=== PATIENT | male | born 1960 | race African-American/Black ===

== ENCOUNTER 2016-06-23 12:00 | Emergency (ER) | payer SELFPAY ==
[2016-06-23 12:05] VITALS: BP 154/82
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
== END 2016-06-23 14:48 | disposition home or self-care (01) ==
LOC: ER 12:00
DX: G89.29 Other chronic pain (principal); M54.5 Low back pain; M25.522 Pain in left elbow; H53.8 Other visual disturbances; W20.8XXS Other cause of strike by thrown, projected or falling object, sequela; R03.0 Elevated blood-pressure reading, without diagnosis of hypertension; F17.210 Nicotine dependence, cigarettes, uncomplicated
CPT/HCPCS: 99283

== ENCOUNTER → 2016-07-20 | Outpatient (CLI) | payer MEDICAID | LOC: OD 14:36 | PROVIDERS: ATTEND Physician Assistant | DX: R73.9 Hyperglycemia, unspecified (principal) | CPT/HCPCS: 36415; 83036 ==

== ENCOUNTER → 2017-09-26 | Outpatient (CLI) | payer OTHER ==
[2017-09-29 09:10] LABS: ABSOLUTE EOSINOPHILS # (AUTO) 0.3 10^3/uL (0.0-0.6); ABSOLUTE MONOCYTES (AUTO) 0.6 10^3/uL (0.1-1.4); ABSOLUTE NEUT (AUTO) 5.2 10^3/uL (1.7-8.2); BASOPHILS % (AUTO) 0.2 % (0-2); EOSINOPHILS % (AUTO) 3.9 % (0-6); HEMATOCRIT 38.5 % (37.9-51.0); HEMOGLOBIN 13.1 g/dL (13.5-17.0); LYMPHOCYTES % (AUTO) 24.2 % (13-45); MEAN CORPUSCULAR HEMOGLOBIN 33.4 pg (27.0-33.4); MEAN CORPUSCULAR HGB CONC 33.9 g/dL (32.0-36.0); MEAN CORPUSCULAR VOLUME 99 fl (80-97); MONOCYTES % (AUTO) 7.9 % (3-13); PLATELET COUNT 263 10^3/uL (150-450); RED BLOOD COUNT 3.91 10^6/uL (4.35-5.55); SEGMENTED NEUTROPHILS % (AUTO) 63.8 % (42-78); TOTAL CELLS COUNTED % (AUTO) 100 %; WHITE BLOOD COUNT 8.2 10^3/uL (4.0-10.5)
[2017-09-29 09:24] LABS: BLOOD UREA NITROGEN 17 mg/dL (7-20); CALCIUM 9.3 mg/dL (8.4-10.2); GLUCOSE 104 mg/dL (75-110)
[2017-09-29 09:25] LABS: ALANINE AMINOTRANSFERASE 23 U/L (21-72); ALBUMIN 3.9 g/dL (3.5-5.0); ALKALINE PHOSPHATASE 72 U/L (38-126); ANION GAP 10 (5-19); ASPARTATE AMINO TRANSFERASE 23 U/L (17-59); BILIRUBIN,DIRECT 0.3 mg/dL (0.0-0.4); BILIRUBIN,TOTAL 0.4 mg/dL (0.2-1.3); CARBON DIOXIDE 26 mmol/L (22-30); CHLORIDE 107 mmol/L (98-107); POTASSIUM 4.1 mmol/L (3.6-5.0); TOTAL PROTEIN 6.5 g/dL (6.3-8.2); TRIGLYCERIDES 89 mg/dL (<150); URIC ACID 4.9 mg/dL (3.5-8.5)
[2017-09-29 09:35] LABS: DIRECT LDL 102 mg/dL (<100)
== END ==
LOC: CCC 11:00
DX: D64.9 Anemia, unspecified (principal)
CPT/HCPCS: 36415; 80053; 80061; 83036; 84550; 85025

== ENCOUNTER → 2017-10-12 | Outpatient (CLI) | payer OTHER | LOC: CCC 17:24 | DX: Z00.00 Encounter for general adult medical examination without abnormal findings (principal) | CPT/HCPCS: 36415; 82607; 83090; 83921 ==

== ENCOUNTER 2017-12-22 09:40 | Emergency (ER) | payer SELFPAY ==
[2017-12-22 09:49] VITALS: BP 137/95
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
[2017-12-22] MEDS ORDERED: ACETAMINOPHEN 650 MG SUPP.RECT PR ONE (10:18)
[2017-12-22] MEDS ORDERED: IBUPROFEN 600 MG TABLET PO ONE (10:21)
== END 2017-12-22 10:30 | disposition home or self-care (01) ==
LOC: ER 09:40
DX: S01.01XA Laceration without foreign body of scalp, initial encounter (principal); W25.XXXA Contact with sharp glass, initial encounter; Z87.891 Personal history of nicotine dependence
CPT/HCPCS: 99283

== ENCOUNTER 2018-01-16 10:15 | Emergency (ER) | payer SELFPAY ==
[2018-01-16 10:19] VITALS: BP 121/84
--- NOTE | 2018-01-16 10:31 | ER Document Report ---
HPI - HPI Pain Level: Denies Notes: Patient is a 57-year-old male who presents with chief complaint of request for staple removal. Patient has 4 yazmin in the right frontal portion of his head. The wound is well approximated and appears to be healing well. Past Medical History - General Information source: Patient - Social History Smoking Status: Never Smoker Family History: Reviewed & Not Pertinent - Medical History Medical History: - please not be trying to micromanage Renal/ Medical History: Denies: Hx Peritoneal Dialysis Traumatic Medical History: Reports: Hx Fractures Past Surgical History: Reports: Hx Orthopedic Surgery - Immunizations Hx Diphtheria, Pertussis, Tetanus Vaccination: Yes Vertical Provider Document - CONSTITUTIONAL Notes: PHYSICAL EXAMINATION: GENERAL: Well-appearing, well-nourished and in no acute distress. HEAD: Atraumatic, normocephalic. 4 yazmin noted to right frontal area, wound well approximated. EYES: Pupils equal round extraocular movements intact, conjunctiva are normal. ENT: Nares patent NECK: Normal range of motion LUNGS: No respiratory distress Musculoskeletal: Normal range of motion NEUROLOGICAL: Normal speech, normal gait. PSYCH: Normal mood, normal affect. SKIN: Warm, Dry, normal turgor, no rashes or lesions noted. - INFECTION CONTROL TRAVEL OUTSIDE OF THE [place] IN LAST 30 DAYS: No Course - Re-evaluation Re-evalutation: 01/16/18 10:28 Yazmin removed with no difficulty. Patient will be discharged home in stable condition. - Vital Signs Vital signs: Temp Pulse Resp BP Pulse Ox 98.5 F 65 14 121/84 97 01/16/18 10:18 01/16/18 10:18 01/16/18 10:18 01/16/18 10:18 01/16/18 10:18 Discharge - Discharge Clinical Impression: Removal of yazmin Condition: Stable Disposition: HOME, SELF-CARE Additional Instructions: Staple Removal Your yazmin have been removed. Please follow the care instructions the doctor/nurse practitioner has outlined for you. Unless instructed otherwise, you may get the wound wet and you do not need to continue bandaging it. You may begin to return to regular activities, but remember that it takes the inner tissues up to six weeks to fully heal. Therefore, do not subject the wound to significant forces or stress as it may re-open. See the doctor immediately if any signs of infection occur such as swelling, redness, drainage of pus, increasing tenderness, red streaks, tender lumps in the armpit or groin above the laceration, or fever. Unless you are instructed otherwise, you should not need to be seen again for any further evaluation of your wound. Referrals: [facility] [Primary Care Provider] - Follow up as needed
== END 2018-01-16 10:34 | disposition home or self-care (01) ==
LOC: ER 10:15
DX: S01.81XD Laceration without foreign body of other part of head, subsequent encounter (principal); X58.XXXD Exposure to other specified factors, subsequent encounter

== ENCOUNTER 2018-07-02 22:21 | Emergency (ER) | payer SELFPAY ==
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
[2018-07-03 01:39] LABS: HEMATOCRIT 37.9 % (37.9-51.0); MEAN CORPUSCULAR HEMOGLOBIN 34.3 pg (27.0-33.4); MEAN CORPUSCULAR HGB CONC 34.3 g/dL (32.0-36.0); MEAN CORPUSCULAR VOLUME 100 fl (80-97); PLATELET COUNT 262 10^3/uL (150-450); RED BLOOD COUNT 3.79 10^6/uL (4.35-5.55); RED CELL DISTRIBUTION WIDTH 13.2 % (11.5-14.0)
[2018-07-03 01:42] LABS: ANION GAP 6 (5-19); BLOOD UREA NITROGEN 17 mg/dL (7-20); CALCIUM 9.4 mg/dL (8.4-10.2); CARBON DIOXIDE 27 mmol/L (22-30); CHLORIDE 110 mmol/L (98-107); GLUCOSE 100 mg/dL (75-110); POTASSIUM 4.1 mmol/L (3.6-5.0); SODIUM 142.5 mmol/L (137-145)
[2018-07-03 02:12] VITALS: BP 141/92
--- NOTE | 2018-07-03 06:37 | EKG REPORT ---
SEVERITY:- ABNORMAL ECG - SINUS RHYTHM FIRST DEGREE AV BLOCK CONSIDER LEFT VENTRICULAR HYPERTROPHY : Confirmed by: Varinder Currie MD 03-Jul-2018 06:36:55
== END 2018-07-03 02:27 | disposition home or self-care (01) ==
LOC: ER 22:21
DX: F07.81 Postconcussional syndrome (principal); R00.2 Palpitations; H53.8 Other visual disturbances; R51 Headache
CPT/HCPCS: 36415; 80048; 85027; 93005; 93010; 99285

== ENCOUNTER 2018-09-04 11:24 | Emergency (ER) | payer SELFPAY ==
[2018-09-04] MEDS ORDERED: ACETAMINOPHEN 325 MG TABLET PO ONE (11:34)
[2018-09-04 11:40] VITALS: BP 133/90
--- NOTE | 2018-09-04 12:22 | RADIOLOGY REPORT (SQ) ---
EXAM DESCRIPTION: FOOT RIGHT COMPLETE COMPLETED DATE/TIME: 09/04/2018 12:01 pm REASON FOR STUDY: unable to bear weight COMPARISON: None. NUMBER OF VIEWS: Three views. TECHNIQUE: AP, lateral and oblique radiographic images acquired of the right foot. LIMITATIONS: None. FINDINGS: MINERALIZATION: Normal. BONES: Nondisplaced fracture distal third of the fifth metatarsal bone. JOINTS: Degenerative changes and marked hallux valgus deformity and associated bunion at the first m etatarsophalangeal joint. SOFT TISSUES: No soft tissue swelling. No foreign body. OTHER: No other significant finding. IMPRESSION: 1. Nondisplaced fracture of the distal fifth metatarsal bone. 2. Degenerative changes and marked hallux valgus deformity and associated bunion at the first metata rsophalangeal joint. TECHNICAL DOCUMENTATION: JOB ID: [id number] [employer]- All Rights Reserved Reading location - IP/workstation name: [email or web address]
--- NOTE | 2018-09-04 13:07 | ER Document Report ---
HPI - HPI Patient complains to provider of: Right foot pain Time Seen by Provider: 09/04/18 11:32 Pain Level: 5 Context: Patient is a 58-year-old male presents to the emergency department for an injury to his right foot. Patient states he had construction boots on when him and his partner while lifting a over 500 pound piece of equipment. States his partner dropped his and and the piece of equipment fell onto his right foot. Patient states he had to have multiple people come over to help lift the object off his right foot. Patient states he continues with pain which is why he presents to the emergency room. Patient states last tetanus immunization was 2 years ago. - MUSCULOSKELETAL Musculoskeletal: REPORTS: Extremity pain - R foot Past Medical History - General Information source: Patient - Social History Smoking Status: Current Every Day Smoker Chew tobacco use (# tins/day): No Frequency of alcohol use: None Drug Abuse: None Family History: Reviewed & Not Pertinent Patient has suicidal ideation: No Patient has homicidal ideation: No Renal/ Medical History: Denies: Hx Peritoneal Dialysis Traumatic Medical History: Reports: Hx Fractures Past Surgical History: Reports: Hx Orthopedic Surgery - Immunizations Hx Diphtheria, Pertussis, Tetanus Vaccination: Yes Vertical Provider Document - CONSTITUTIONAL Agree With Documented VS: Yes Notes: GENERAL: Alert, interacts well. No acute distress. HEAD: Normocephalic, atraumatic. EYES: Pupils equal, round, and reactive to light. Extraocular movements intact. ENT: Oral mucosa moist, tongue midline. NECK: Full range of motion. Supple. Trachea midline. LUNGS: Clear to auscultation bilaterally, no wheezes, rales, or rhonchi. No respiratory distress. HEART: Regular rate and rhythm. No murmur ABDOMEN: Soft, non-tender. Non-distended. Bowel sounds present in all 4 quadrants. EXTREMITIES: Moves all 4 extremities spontaneously. normal radial and dorsalis pedis pulses bilaterally. Edema noted dorsal aspect of right foot. Capillary refill less than 2 seconds distally all 5 extremities right lower extremity. No pain upon palpation or movement right ankle. BACK: no cervical, thoracic, lumbar midline tenderness. No saddle anesthesia, normal distal neurovascular exam. NEUROLOGICAL: Alert and oriented x3. Normal speech. cranial nerves II through XII grossly intact PSYCH: Normal affect, normal mood. SKIN: Warm, dry, normal turgor. Superficial abrasion noted to the dorsal aspect of the right foot. - INFECTION CONTROL TRAVEL OUTSIDE OF THE [place] IN LAST 30 DAYS: No Course - Re-evaluation Re-evalutation: 09/04/18 13:05 Patient's x-ray as below Foot X-Ray 09/04/18 11:30 IMPRESSION: 1. Nondisplaced fracture of the distal fifth metatarsal bone. 2. Degenerative changes and marked hallux valgus deformity and associated bunion at the first metatarsophalangeal joint. Posterior short leg splint placed in the emergency department. Discussed close follow-up with orthopedics. Patient does appear to have a slight abrasion on t he dorsal aspect of his foot. His metatarsal break is nondisplaced I do not feel as though this is an open fracture. Discussed with patient close follow-up with orthopedics and close return precaution. Patient voices understanding stable for discharge. This medical record was dictated with voice recognizing software. There may be grammatical, syntax errors that are unintended. - Vital Signs Vital signs: Temp Pulse Resp BP Pulse Ox 98.6 F 67 18 133/90 H 100 09/04/18 11:39 09/04/18 11:39 09/04/18 11:39 09/04/18 11:39 09/04/18 11:39 Discharge - Discharge Clinical Impression: Metatarsal bone fracture Qualifiers: Encounter type: initial encounter Metatarsal bone: fifth Fracture type: closed Fracture alignment: nondisplaced Laterality: right Qualified Code(s): S92.354A - Nondisplaced fracture of fifth metatarsal bone, right foot, initial encounter for closed fracture Condition: Stable Disposition: HOME, SELF-CARE Instructions: Foot Fracture ([facility]) Additional Instructions: As we discussed you have been seen and treated in the emergency department for a fracture of 1 of the bones in your right foot. Please make sure you keep the splint we have placed in the emergency department on 100% of the time. Please also make sure you follow-up with orthopedics, phone numbers to be provided in this packet. Please return to the emergency room for any concerns. Referrals: EDUARDO KING DO [ACTIVE STAFF] - Follow up as needed
== END 2018-09-04 13:26 | disposition home or self-care (01) ==
LOC: ER 11:24
DX: S92.354A Nondisplaced fracture of fifth metatarsal bone, right foot, initial encounter for closed fracture (principal); M79.671 Pain in right foot; W22.8XXA Striking against or struck by other objects, initial encounter; F17.200 Nicotine dependence, unspecified, uncomplicated
CPT/HCPCS: 99283

== ENCOUNTER 2018-09-25 10:25 | Emergency (ER) | payer OTHER ==
[2018-09-25] MEDS ORDERED: IBUPROFEN 800 MG TABLET PO ONE (11:38)
--- NOTE | 2018-09-25 12:13 | RADIOLOGY REPORT (SQ) ---
EXAM DESCRIPTION: FOOT RIGHT COMPLETE COMPLETED DATE/TIME: 09/25/2018 11:51 am REASON FOR STUDY: hx fx, pain, bony tenderness COMPARISON: 09/04/2018 NUMBER OF VIEWS: Three views. TECHNIQUE: AP, lateral and oblique radiographic images acquired of the right foot. LIMITATIONS: None. FINDINGS: MINERALIZATION: Normal. BONES: Fracture of the distal 5th metatarsal that is more evident currently, secondary to some bone r esorption. There is no bridging callus at this time. JOINTS: No effusions. SOFT TISSUES: No soft tissue swelling. No foreign body. OTHER: No other significant finding. IMPRESSION: Fracture of the right 5th metatarsal as described. Hallux valgus. TECHNICAL DOCUMENTATION: JOB ID: [id number] [employer]- All Rights Reserved Reading location - IP/workstation name: [email or web address]
--- NOTE | 2018-09-25 12:21 | ER Document Report ---
HPI - HPI Patient complains to provider of: Foot pain Time Seen by Provider: 09/25/18 11:29 Onset: Other - September 04 Pain Level: 2 Context: Patient presents to the emergency department with complaints of right foot pain. Patient reports he fractured his foot on September 04. He has not followed up with orthopedics. Reports nobody accepts his card. Reports he has been using his crutches and has only remove the splint one time. Splint is in place. His other symptoms such as fever vomiting diarrhea. - MUSCULOSKELETAL Musculoskeletal: REPORTS: Extremity pain - left foot Past Medical History - General Information source: Patient - Social History Smoking Status: Current Every Day Smoker Cigarette use (# per day): Yes Frequency of alcohol use: Heavy Occupation: None Family History: Reviewed & Not Pertinent Patient has suicidal ideation: No Patient has homicidal ideation: No - Past Medical History Cardiac Medical History: Reports: Hx Hypertension Pulmonary Medical History: Reports: Hx Asthma Renal/ Medical History: Denies: Hx Peritoneal Dialysis Traumatic Medical History: Reports: Hx Fractures Past Surgical History: Reports: Hx Orthopedic Surgery - Immunizations Hx Diphtheria, Pertussis, Tetanus Vaccination: Yes Vertical Provider Document - CONSTITUTIONAL Agree With Documented VS: Yes Exam Limitations: No Limitations General Appearance: WD/WN, No Apparent Distress - INFECTION CONTROL TRAVEL OUTSIDE OF THE [place] IN LAST 30 DAYS: No - HEENT HEENT: Atraumatic - NECK Neck: Supple - RESPIRATORY Respiratory: No Respiratory Distress - MUSCULOSKELETAL/EXTREMETIES Musculoskeletal/Extremeties: MAEW, FROM, Tender - Right dam tender assistant to palpation slight swelling dorsally no erythema no warmth good pedal pulse good cap refill - NEURO Level of Consciousness: Awake, Alert, Appropriate Motor/Sensory: No Motor Deficit - DERM Integumentary: Warm, Dry Adult Front & Back Diagram: 1 - Patient is area tender to palpation Course - Re-evaluation Re-evalutation: 09/25/18 12:22 Splint removed site swelling dorsally noted no erythema no good cap refill good pedal pulse. Patient complains of tenderness when he flexes his toes 09/25/18 12:44 Vital signs were retaken upon discharge. Patient's heart rate went down to 28. Patient reports he is a irregular heartbeat. Patient complains of frontal headache and some nausea. Denies chest pain shortness of breath. I have greeted and performed a rapid initial assessment of this patient. [facility] ED assessment and evaluation of the patient, analysis of test results and completion of the medical decision making process will be conducted by additional ED providers. Dictation of this chart was performed using voice recognition software; therefore, there may be some unintended grammatical errors. - Vital Signs Vital signs: Temp Pulse Resp BP Pulse Ox 98.4 F 58 L 16 138/88 H 98 09/25/18 10:35 09/25/18 10:35 09/25/18 10:35 09/25/18 10:35 09/25/18 10:35 - Laboratory Result Diagrams: 09/25/18 13:21 09/25/18 13:21 - Diagnostic Test Radiology reviewed: Image reviewed, Reports reviewed Procedures - Immobilization Right Foot Immobilizer type: Posterior ankle Performed by: PCT Post-Proc Neuro Vasc Exam: Unchanged from pre-exam Alignment checked and good: Yes Discharge - Discharge Clinical Impression: Fracture of 5th metatarsal Qualifiers: Encounter type: sequela Fracture type: closed Fracture alignment: nondisplaced Laterality: right Qualified Code(s): S92.354S - Nondisplaced fracture of fifth metatarsal bone, right foot, sequela Condition: Stable Disposition: HOME, SELF-CARE Instructions: Use of Crutches ([facility]), Foot Fracture ([facility]), Use of Baor-Oor-Kmyjywy Ibuprofen ([facility]), Splint Pending Casting ([facility]) Additional Instructions: *You have been evaluated for fracture of the fifth metatarsal *Maintain the splint, use your crutches- nonweightbearing *Rest/Ice/Elevate foot *Follow up with orthopedics-call for an appointment *Take ibuprofen as indicated for pain. *Return to ED for worsening condition, changes, needs Monitor your blood pressure. Your blood pressure was elevated today. This may be because you were anxious, in pain or because you need medication. It is im portant to follow up with your primary care provider for full evaluation. Forms: Elevated Blood Pressure
--- NOTE | 2018-09-25 13:24 | RADIOLOGY REPORT (SQ) ---
EXAM DESCRIPTION: CHEST 2 VIEWS COMPLETED DATE/TIME: 09/25/2018 1:08 pm REASON FOR STUDY: irregular heart COMPARISON: 03/18/2010 EXAM PARAMETERS: NUMBER OF VIEWS: two views TECHNIQUE: Digital Frontal and Lateral radiographic views of the chest acquired. RADIATION DOSE: NA LIMITATIONS: none FINDINGS: LUNGS AND PLEURA: No opacities, masses or pneumothorax. No pleural effusion. MEDIASTINUM AND HILAR STRUCTURES: No masses or contour abnormalities. HEART AND VASCULAR STRUCTURES: Heart normal size. No evidence for failure. BONES: No acute findings. HARDWARE: None in the chest. OTHER: No other significant finding. IMPRESSION: No acute abnormality of the lungs. TECHNICAL DOCUMENTATION: JOB ID: [id number] [employer]- All Rights Reserved Reading location - IP/workstation name: [email or web address]
[2018-09-25 13:38] LABS: ABSOLUTE BASOPHILS # (AUTO) 0.2 10^3/uL (0.0-0.2); ABSOLUTE EOSINOPHILS # (AUTO) 0.4 10^3/uL (0.0-0.6); ABSOLUTE LYMPHOCYTES (AUTO) 2.2 10^3/uL (0.5-4.7); ABSOLUTE MONOCYTES (AUTO) 0.6 10^3/uL (0.1-1.4); BASOPHILS % (AUTO) 2.2 % (0-2); EOSINOPHILS % (AUTO) 5.2 % (0-6); HEMATOCRIT 39.2 % (37.9-51.0); HEMOGLOBIN 13.3 g/dL (13.5-17.0); LYMPHOCYTES % (AUTO) 26.2 % (13-45); MEAN CORPUSCULAR HEMOGLOBIN 33.9 pg (27.0-33.4); MEAN CORPUSCULAR VOLUME 100 fl (80-97); MONOCYTES % (AUTO) 7.3 % (3-13); PLATELET COUNT 275 10^3/uL (150-450); RED BLOOD COUNT 3.92 10^6/uL (4.35-5.55); SEGMENTED NEUTROPHILS % (AUTO) 59.1 % (42-78); TOTAL CELLS COUNTED % (AUTO) 100 %; WHITE BLOOD COUNT 8.5 10^3/uL (4.0-10.5)
[2018-09-25 13:49] LABS: APPEARANCE,URINE CLEAR; BILIRUBIN,URINE NEGATIVE (NEGATIVE); COLOR,URINE YELLOW; GLUCOSE, URINE NEGATIVE (NEGATIVE); KETONES,URINE NEGATIVE (NEGATIVE); LEUKOCYTE ESTERASE,URINE NEGATIVE (NEGATIVE); NITRITE,URINE NEGATIVE (NEGATIVE); PROTEIN,URINE NEGATIVE (NEGATIVE); URINE SPECIFIC GRAVITY 1.021; UROBILINOGEN,URINE NEGATIVE mg/dL (<2.0)
[2018-09-25 13:59] LABS: ALANINE AMINOTRANSFERASE 29 U/L (21-72); ALBUMIN 3.8 g/dL (3.5-5.0); ALKALINE PHOSPHATASE 82 U/L (38-126); ANION GAP 6 (5-19); ASPARTATE AMINO TRANSFERASE 24 U/L (17-59); BILIRUBIN,DIRECT 0.2 mg/dL (0.0-0.4); BILIRUBIN,TOTAL 0.3 mg/dL (0.2-1.3); BLOOD UREA NITROGEN 15 mg/dL (7-20); CARBON DIOXIDE 29 mmol/L (22-30); CHLORIDE 105 mmol/L (98-107); CREATINE KINASE 175 U/L (55-170); GLUCOSE 111 mg/dL (75-110); POTASSIUM 4.2 mmol/L (3.6-5.0); SODIUM 139.5 mmol/L (137-145); TOTAL PROTEIN 6.2 g/dL (6.3-8.2)
[2018-09-25 14:00] LABS: URINE AMPHETAMINES SCREEN NEGATIVE; URINE BARBITURATES SCREEN NEGATIVE; URINE BENZODIAZEPINES SCREEN NEGATIVE; URINE COCAINE SCREEN UNCONFIRMED POSITIVE; URINE MARIJUANA (THC) SCREEN NEGATIVE; URINE METHADONE SCREEN NEGATIVE; URINE PHENCYCLIDINE SCREEN NEGATIVE
[2018-09-25] MEDS ORDERED: NORMAL SALINE 1000 ML 1,000 ML IV ONE (16:54)
--- NOTE | 2018-09-25 17:06 | ER Document Report ---
ED General - General Chief Complaint: Foot Pain Stated Complaint: FOOT PAIN Time Seen by Provider: 09/25/18 11:29 TRAVEL OUTSIDE OF THE [place]. IN LAST 30 DAYS: No - HPI Notes: Patient is a 4-year-old male who presents emergency department for evaluation. He had recently sustained an injury to his right foot, came back in here because he was having pain. He was found to have a fracture of his right fifth metatarsal. This was resplinted. At the time of discharge his heart rate was in the 20s, so he was sent back to the main ED for further evaluation. The patient states he had some intermittent dizziness but has always attributed that to a head injury in his distant past. He denies any chest pain or difficulty breathing. - Related Data Allergies/Adverse Reactions: No Known Allergies Allergy (Verified 09/25/18 10:31) Past Medical History - General Information source: Patient - Social History Smoking Status: Current Every Day Smoker Cigarette use (# per day): Yes Frequency of alcohol use: Rare Drug Abuse: Cocaine Occupation: None Family History: Reviewed & Not Pertinent Patient has suicidal ideation: No Patient has homicidal ideation: No - Past Medical History Cardiac Medical History: Reports: Hx Hypertension Pulmonary Medical History: Reports: Hx Asthma Renal/ Medical History: Denies: Hx Peritoneal Dialysis Traumatic Medical History: Reports: Hx Fractures Past Surgical History: Reports: Hx Orthopedic Surgery - Immunizations Hx Diphtheria, Pertussis, Tetanus Vaccination: Yes Review of Systems - Review of Systems Constitutional: No symptoms reported EENT: No symptoms reported Cardiovascular: See HPI Respiratory: No symptoms reported Gastrointestinal: No symptoms reported Genitourinary: No symptoms reported Musculoskeletal: See HPI Skin: No symptoms reported Neurological/Psychological: No symptoms reported Physical Exam - Vital signs Vitals: Temp Pulse Resp BP Pulse Ox 98.4 F 58 L 16 138/88 H 98 09/25/18 10:35 09/25/18 10:35 09/25/18 10:35 09/25/18 10:35 09/25/18 10:35 - Notes Notes: Vital signs reviewed, please refer to chart. Head is normocephalic, atraumatic. Pupils equal round, reactive to light. Neck is supple without meningismus. Heart is markedly bradycardic. Lungs are clear to auscultation bilaterally. Abdomen is soft, nontender, normoactive bowel sounds throughout. Extremities without cyanosis, clubbing, edema. He does have a splint in place on the right lower extremity. Peripheral pulses are equal. Skin is warm and dry. Patient is awake, alert, neurological exam is nonfocal. Course - Re-evaluation Re-evalutation: 09/25/18 17:08 Patient presented to the emergency department for evaluation. Initially he was here for a right foot injury, was found to have a metatarsal fracture. He was splinted. He was sent back to the main side because he was found to be markedly bradycardic. Laboratory investigations were obtained. He was found to be positive for cocaine, which the patient admitted to. He was placed on a personnel monitor and pacer pads were placed. His heart rate ranged from 22 up to 49. He remained completely asymptomatic throughout the course of his stay. I spoke with Dr. Francis, retail wireless sales consultant on-call at [facility]. Unfortunately there are no beds available or physicians able to talk to me from [facility]. Dr. Francis happily accepted the patient to the [facility] tomorrow, but asks that the patient stay here in the emergency department at [place] overnight if he remained stable. Of course he is willing to accept the patient sooner should any vital signs become unstable or other issues arise. Patient was amenable to this. - Vital Signs Vital signs: Temp Pulse Resp BP Pulse Ox 98.4 F 58 L 14 122/97 H 100 09/25/18 10:35 09/25/18 10:35 09/25/18 16:31 09/25/18 16:31 09/25/18 16:31 - Laboratory Result Diagrams: 09/25/18 13:21 09/25/18 13:21 Laboratory results interpreted by me: 09/25/18 09/25/18 09/25/18 13:21 13:21 13:21 RBC 3.92 L Hgb 13.3 L MCV 100 H MCH 33.9 H Basophils % 2.2 H Glucose 111 H Creatine Kinase 175 H Total Protein 6.2 L Urine Blood MODERATE H - Diagnostic Test Radiology reviewed: Reports reviewed Radiology results interpreted by me: 09/25/18 17:09 Foot X-Ray 09/25/18 11:37 IMPRESSION: Fracture of the right 5th metatarsal as described. Hallux valgus. Chest X-Ray 09/25/18 12:45 IMPRESSION: No acute abnormality of the lungs. - EKG Interpretation by Me Additional EKG results interpreted by me: 09/25/18 17:11 3rd degree AV block with a rate of 36 bpm. Normal axis. Normal QRS duration. Nonspecific ST changes. This was a significant change in compared to prior study. Discharge - Discharge Clinical Impression: Third degree heart block Fracture of 5th metatarsal Qualifiers: Encounter type: sequela Fracture type: closed Fracture alignment: nondisplaced Laterality: right Qualified Code(s): S92.354S - Nondisplaced fracture of fifth metatarsal bone, right foot, sequela Condition: Stable Disposition: [facility] Instructions: Use of Cr[facility]ches ([facility]), Foot Fracture ([facility]), Use of Cqhb-Oki-Lkbnrtr Ibuprofen ([facility]), Splint Pending Casting ([facility]) Additional Instructions: *You have been evaluated for fracture of the fifth metatarsal *Maintain the splint, use your crutches- nonweightbearing *Rest/Ice/Elevate foot *Follow up with orthopedics-call for an appointment *Take ibuprofen as indicated for pain. *Return to ED for worsening condition, changes, needs Monitor your blood pressure. Your blood pressure was elevated today. This may be because you were anxious, in pain or because you need medication. It is important to follow up with your primary care provider for full evaluation. Forms: Elevated Blood Pressure
[2018-09-25 21:29] VITALS: BP 142/101
--- NOTE | 2018-09-26 00:25 | EKG REPORT ---
SEVERITY:- ABNORMAL ECG - AV BLOCK, MOBITZ TYPE I, HIGH GRADE PREDOMINANATLTY 2:1 CONDUCTION LEFT VENTRICULAR HYPERTROPHY : Confirmed by: Mei Cornell 26-Sep-2018 00:25:06
--- NOTE | 2018-09-27 17:55 | EKG REPORT ---
SEVERITY:- ABNORMAL ECG - SINUS WITH MOBITZ TYPE I AV BLOCK, PREDOMINANTLY 2;1 BLOCK ATRIAL PREMATURE COMPLEX FIRST DEGREE AV BLOCK BORDERLINE T ABNORMALITIES, LATERAL LEADS : Confirmed by: Mei Cornell 27-Sep-2018 17:54:41
== END 2018-09-25 21:59 | disposition short-term general hospital (02) ==
LOC: ER 10:25
DX: I44.2 Atrioventricular block, complete (principal); S92.354S Nondisplaced fracture of fifth metatarsal bone, right foot, sequela; X58.XXXS Exposure to other specified factors, sequela; M79.671 Pain in right foot; I10 Essential (primary) hypertension; F17.210 Nicotine dependence, cigarettes, uncomplicated
CPT/HCPCS: 93005; 99285; 36415; 82550; 85025; 80053; 81001; 84484; 80307; 71046; 73630; 93010; J7030